=== PATIENT | female | born 2000 | race African-American/Black ===

== ENCOUNTER 2023-01-05 16:33 | Observation (INO) | payer MEDICAID, MEDICARE ==
[2023-01-05] MEDS ORDERED: PREN1TAB78 PO (21:10)
== END 2023-01-05 21:35 | disposition home or self-care (01) ==
LOC: 8 EST LDRP 16:33
PROVIDERS: ADMIT Obstetrics & Gynecology; ATTEND Obstetrics & Gynecology
DX: O36.8330 Maternal care for abnormalities of the fetal heart rate or rhythm, third trimester, not applicable or unspecified (principal); O48.0 Post-term pregnancy; Z3A.41 41 weeks gestation of pregnancy
CPT/HCPCS: 59025; 76805; 76818; G0378; 99281

== ENCOUNTER 2023-01-07 12:47 | Inpatient (IN) | payer MEDICAID, OTHER ==
[~2023-01-07] VITALS: Ht 172.7 cm; Wt 111.1 kg
[~2023-01-07 12:47] MED LIST: PREN1TAB78 PO
[2023-01-07 20:56] LABS: CLARITY URINE CLEAR (CLEAR); COLOR URINE YELLOW (YELLOW); KETONES URINE NEGATIVE (NEGATIVE); LEUKOCYTE ESTERASE URINE NEGATIVE (NEGATIVE); NITRITE URINE NEGATIVE (NEGATIVE); OCCULT BLOOD URINE NEGATIVE (NEGATIVE); PH URINE 5.5 (4.5-8.0); PROTEIN URINE NEGATIVE (NEGATIVE); SPECIFIC GRAVITY URINE 1.013 (1.005-1.030); UROBILINOGEN URINE 0.2 E.U./dL (0.2-1.0)
[2023-01-07 21:02] LABS: INR 0.9; PARTIAL THROMBOPLASTIN TIME 26.6 sec (23.4-31.0); PROTHROMBIN TIME 9.5 sec (9.6-11.0)
[2023-01-07 21:08] LABS: *AMPHETAMINES SCREEN URINE NEGATIVE (NEGATIVE); *BARBITURATES SCREEN URINE NEGATIVE (NEGATIVE); *BENZODIAZEPINES SCREEN URINE NEGATIVE (NEGATIVE); *COCAINE SCREEN URINE NEGATIVE (NEGATIVE); CANNABINOID URINE SCREEN NEGATIVE (NEGATIVE); METHADONE URINE SCREEN NEGATIVE (NEGATIVE); OPIATES URINE SCREEN NEGATIVE (NEGATIVE); PHENCYCLIDINE URINE SCREEN NEGATIVE (NEGATIVE)
[2023-01-07 21:31] LABS: HEPATITIS B SURFACE ANTIGEN NEGATIVE
[2023-01-07 21:37] LABS: BASOPHILS % 0.4 % (0.0-2.0); HEMATOCRIT. 33.8 % (36.0-48.0); HEMOGLOBIN. 11.1 g/dL (12.0-16.0); LYMPHOCYTES % 18.7 % (20.0-50.0); MEAN CORPUSCULAR HEMOGLOBIN 28.3 pg (28.0-32.0); MEAN CORPUSCULAR VOLUME 86.3 fL (81.0-99.0); MONOCYTES % 14.2 % (2.0-8.0); NEUTROPHILS % 65.7 % (40.0-76.0); PLATELET 280 x1000/uL (130-400); RED BLOOD CELL COUNT 3.91 mill/uL (4.2-5.4); RED CELL DISTRIBUTION WIDTH 15.5 % (11.6-14.6)
[2023-01-08] MEDS ORDERED: ONDANSETRON HCL 4MG/2ML INJ ONE (11:52)
[2023-01-08] MEDS ORDERED: CEFAZOLIN SODIUM 1000MG/VIAL ONE (11:52)
[2023-01-08] MEDS ORDERED: MORPHINE SULFATE/PF 1MG/ML 10ML AMP ONE (11:52)
[2023-01-08] MEDS ORDERED: OXYTOCIN 10 UNITS/ML 1ML ONE (11:52)
[2023-01-08] MEDS ORDERED: EPHEDRINE SULFATE 50MG/ML VIAL ONE (11:52)
[2023-01-08] MEDS ORDERED: FENTANYL CITRATE/PF 50MCG/ML 2ML VIAL ONE (11:52)
[2023-01-08] MEDS ORDERED: DIPHENHYDRAMINE 50MG/ML VIAL ONE (11:52)
[2023-01-08] MEDS: LACTATED RINGERS 1,000 ML IV SCH ×3 (15:35→21:30)
[2023-01-08] MEDS: AMPICILLIN 2GM in NS 100ML 100 ML IV SCH ×3 (15:36→21:45)
[2023-01-08] MEDS ORDERED: ROPIVACAINE HCL/PF EPIDURAL 200 ML EPI SCH (22:15)
[2023-01-08] MEDS ORDERED: ROPIVACAINE HCL/PF EPIDURAL 200 ML EPI ONE (22:21)
[2023-01-09] MEDS: LACTATED RINGERS 1,000 ML IV SCH (00:06)
[2023-01-09] MEDS ORDERED: TRANEXAMIC ACID 10 ML ONE (03:37)
[2023-01-09] MEDS ORDERED: DIPHENHYDRAMINE 50MG/ML VIAL ONE (04:03)
[2023-01-09] MEDS ORDERED: KETOROLAC 60MG/2ML VIAL IM ONE (04:06)
[2023-01-09] MEDS ORDERED: ONDANSETRON HCL 4MG/2ML INJ IV PRN (04:45)
[2023-01-09] MEDS ORDERED: LANOLIN OINT 7GM TUBE TOP PRN (04:45)
[2023-01-09] MEDS ORDERED: RHO(D) IMMUNE GLOBULIN 300 MCG/SYR IM PRN (04:45)
[2023-01-09] MEDS ORDERED: BISACODYL 10MG SUPP PR PRN (04:45)
[2023-01-09] MEDS ORDERED: BUTORPHANOL TARTRATE 2 MG/ML VIAL IV PRN (04:45)
[2023-01-09] MEDS ORDERED: DIPHENHYDRAMINE 50MG/ML VIAL IV PRN (04:45)
[2023-01-09] MEDS ORDERED: OXYCODONE HCL/ACETAMINOPHEN 5/325MG TABLET PO PRN (04:45)
[2023-01-09] MEDS ORDERED: OXYTOCIN 30 UNITS/500ML NS PMX 500 ML IV SCH (04:45)
[2023-01-09] MEDS ORDERED: HEMORRHOIDAL SUPP PR PRN (04:45)
[2023-01-09] MEDS ORDERED: IBUPROFEN 400MG TABLET PO PRN (04:45)
[2023-01-09] MEDS ORDERED: NALOXONE HCL 0.4 MG/ML 1ML VIAL IV PRN (04:45)
[2023-01-09] MEDS ORDERED: DIPHENHYDRAMINE 25MG CAPSULE PO PRN (04:45)
[2023-01-09 07:45] VITALS: BP 118/71
[2023-01-09 08:15] VITALS: BP 115/62
[2023-01-09 08:40] VITALS: BP 119/69
[2023-01-09] MEDS: MAGNESIUM/ALUMINUM HYDROXIDE/SIMETHICONE 30ML UDC PO SCH ×4 (08:44→21:24)
[2023-01-09] MEDS: SIMETHICONE 80MG TABLET CHEW PO SCH ×4 (08:45→21:24)
[2023-01-09] MEDS: PRENATAL VIT/FE FUMARATE/FA TABLET PO SCH (08:45)
[2023-01-09] MEDS: KETOROLAC 30MG/ML VIAL IV SCH ×2 (10:45→16:45)
[2023-01-09 15:33] VITALS: BP 132/60
[2023-01-09 19:08] LABS: HIV SCREEN 4G Non Reactive (Non Reactive)
[2023-01-09 20:15] VITALS: BP 128/80
[2023-01-09] MEDS: DOCUSATE SODIUM 100MG CAPSULE PO SCH (21:24)
[2023-01-10 00:05] VITALS: BP 118/67
[2023-01-10 04:00] VITALS: BP 125/73
[2023-01-10 06:25] LABS: HEMATOCRIT. 29.6 % (36.0-48.0); HEMOGLOBIN. 9.8 g/dL (12.0-16.0); MEAN CORPUSCULAR HEMOGLOBIN 28.4 pg (28.0-32.0); MEAN PLATELET VOLUME 9.6 fl (7.4-10.4); PLATELET 247 x1000/uL (130-400); RED BLOOD CELL COUNT 3.44 mill/uL (4.2-5.4); RED CELL DISTRIBUTION WIDTH 15.5 % (11.6-14.6)
[2023-01-10 08:00] VITALS: BP 134/84
[2023-01-10] MEDS: SIMETHICONE 80MG TABLET CHEW PO SCH ×4 (08:47→21:46)
[2023-01-10] MEDS: PRENATAL VIT/FE FUMARATE/FA TABLET PO SCH (08:47)
[2023-01-10] MEDS: MAGNESIUM/ALUMINUM HYDROXIDE/SIMETHICONE 30ML UDC PO SCH ×4 (08:47→21:46)
[2023-01-10] MEDS: IBUPROFEN 800MG TABLET PO PRN ×3 (08:47→23:27)
[2023-01-10] MEDS: FERROUS SULFATE 325MG TABLET PO SCH ×3 (08:47→18:09)
[2023-01-10 10:18] LABS: PLATELET ESTIMATE NORMAL
[2023-01-10 16:00] VITALS: BP 127/78
[2023-01-10 20:00] VITALS: BP 134/75
[2023-01-10] MEDS: DOCUSATE SODIUM 100MG CAPSULE PO SCH (21:46)
[2023-01-11 04:00] VITALS: BP 139/85
[2023-01-11] MEDS: IBUPROFEN 800MG TABLET PO PRN ×3 (06:20→21:06)
[2023-01-11 08:00] VITALS: BP 126/81
[2023-01-11] MEDS: PRENATAL VIT/FE FUMARATE/FA TABLET PO SCH ×2 (08:45→10:47)
[2023-01-11] MEDS: MAGNESIUM/ALUMINUM HYDROXIDE/SIMETHICONE 30ML UDC PO SCH ×3 (08:45→21:05)
[2023-01-11] MEDS: FERROUS SULFATE 325MG TABLET PO SCH ×3 (08:45→13:58)
[2023-01-11] MEDS: SIMETHICONE 80MG TABLET CHEW PO SCH ×4 (08:45→21:06)
[2023-01-11 12:00] VITALS: BP 146/86
[2023-01-11 16:00] VITALS: BP 143/89
[2023-01-11 20:00] VITALS: BP 128/82
[2023-01-11] MEDS: DOCUSATE SODIUM 100MG CAPSULE PO SCH (21:05)
[2023-01-12 04:00] VITALS: BP 135/91
[2023-01-12 06:45] VITALS: BP 139/80
[2023-01-12 08:30] VITALS: BP 124/88
[2023-01-12] MEDS: FERROUS SULFATE 325MG TABLET PO SCH (09:22)
[2023-01-12] MEDS: MAGNESIUM/ALUMINUM HYDROXIDE/SIMETHICONE 30ML UDC PO SCH (09:22)
[2023-01-12] MEDS: IBUPROFEN 800MG TABLET PO PRN (09:23)
[2023-01-12] MEDS: SIMETHICONE 80MG TABLET CHEW PO SCH (09:23)
[2023-01-12] MEDS: PRENATAL VIT/FE FUMARATE/FA TABLET PO SCH (09:23)
[2023-01-12 10:35] VITALS: BP 131/77
[2023-01-12 12:30] VITALS: BP 130/87
== END 2023-01-12 13:05 | disposition home or self-care (01) | DRG 540 ==
LOC: 8 EST LDRP 12:47
PROVIDERS: ADMIT Obstetrics & Gynecology; ATTEND Obstetrics & Gynecology
PROC: 10D00Z1 Extraction of Products of Conception, Low, Open Approach (ICD-10-PCS; principal; 2023-01-09)
DX: O32.4XX0 Maternal care for high head at term, not applicable or unspecified (principal); O99.214 Obesity complicating childbirth; D25.1 Intramural leiomyoma of uterus; O62.0 Primary inadequate contractions; O36.63X0 Maternal care for excessive fetal growth, third trimester, not applicable or unspecified; O48.0 Post-term pregnancy; Z20.822 Contact with and (suspected) exposure to COVID-19; O99.02 Anemia complicating childbirth; O34.13 Maternal care for benign tumor of corpus uteri, third trimester; Z3A.41 41 weeks gestation of pregnancy; Z37.0 Single live birth; Z68.37 Body mass index [BMI] 37.0-37.9, adult
CPT/HCPCS: 36415; 76815; 76818; 80305; 81003; 85025; 86592; 86762; 86850; 86900; 86920; 87340; 87389; 87426; 88307; 99281; G0378; J0290; J0690; J1200; J1885; J2274; J2405; J2795; J3010; J3490; J7120; A4315; J2590